=== PATIENT | female | born 2000 | race Caucasian/White ===

== ENCOUNTER 2022-09-07 17:15 | Emergency (ER) | payer BC ==
[~2022-09-07] VITALS: Ht 170.1 cm; Wt 67.1 kg
== END 2022-09-07 19:32 | disposition home or self-care (01) ==
LOC: ED 17:15
DX: M24.411 Recurrent dislocation, right shoulder (principal); Z88.0 Allergy status to penicillin

== ENCOUNTER 2023-04-04 22:51 | Emergency (ER) | payer BC ==
[~2023-04-04] VITALS: Ht 170.1 cm; Wt 65.8 kg
[2023-04-04 23:30] LABS: BASO % 0.6 % (0.0-1.0); EOS # 0.3 10*3/uL (0.0-0.4); EOS % 4.4 % (1.0-4.0); HEMATOCRIT 36.9 % (37.0-47.0); LYMPH % 29.6 % (27.0-41.0); MEAN CELL VOLUME 86.8 fl (81.0-99.0); MEAN CORPUSCULAR HGB 29.2 pg (27.0-31.0); MEAN CORPUSCULAR HGB CONC 33.6 g/dl (33.0-37.0); MEAN PLATELET VOLUME 11.2 fl (9.6-12.3); MONO # 0.4 10*3/uL (0.1-1.0); MONO % 5.6 % (3.0-9.0); NEUT % 59.7 % (47.0-73.0); PLATELET COUNT AUTOMATED 215 10*3/uL (130-400); RED BLOOD COUNT 4.25 10*6/uL (4.10-5.10); RED CELL DISTRI WIDTH 13.2 % (0-14.5); WHITE BLOOD COUNT 6.8 10*3/uL (4.8-10.8)
[2023-04-04 23:41] LABS: ACT PARTIAL THROMBO TIME 27.5 SECONDS (20.0-32.1); INTERNATIONAL NORM RATIO 1.1 (2.0-3.5)
[2023-04-04 23:51] LABS: ALKALINE PHOSPHATASE 59 U/L (46-116); BUN 10 mg/dl (9-23); CHLORIDE 109 mmol/L (98-107); LIPASE 44 U/L (12-53); POTASSIUM 3.1 mmol/L (3.4-5.1); SGPT/ALT 10 U/L (10-49); TOTAL PROTEIN 7.1 gm/dL (6.0-8.0)
[2023-04-05 00:14] LABS: VENOUS PH 7.341 (7.37-7.45)
[2023-04-05 00:40] LABS: BILIRUBIN Negative (Negative); BLOOD Negative (Negative); CLARITY Cloudy (Clear); COLOR Yellow (Yellow); GLUCOSE Negative (Negative); KETONE Negative (Negative); LEUKO ESTERASE 2+ (Negative); NITRITE Negative (Negative); PH 7.5 (4.5-8.0); SPECIFIC GRAVITY 1.015 (1.001-1.030)
[2023-04-05 01:12] LABS: EPITHELIAL CELLS TNTC; WBC 21-30 wbc/hpf (0-5)
[2023-04-05 01:13] LABS: BACTERIA 2+
[2023-04-05] MEDS ORDERED: MACROBID100 M1 PO (01:30)
== END 2023-04-05 01:55 | disposition home or self-care (01) ==
LOC: ED 22:51
PROVIDERS: Emergency Medicine
DX: J45.909 Unspecified asthma, uncomplicated (principal); N39.0 Urinary tract infection, site not specified; R94.31 Abnormal electrocardiogram [ECG] [EKG]; E87.6 Hypokalemia; Z88.0 Allergy status to penicillin; Z98.890 Other specified postprocedural states; Z20.822 Contact with and (suspected) exposure to COVID-19